=== PATIENT | male | born 1935 | race Caucasian/White ===

== ENCOUNTER → 2023-08-08 08:10 | Outpatient (REF) | payer MEDICARE, OTHER, SELFPAY ==
[2023-08-08 09:50] LABS: HDL Cholesterol 47 mg/dl; LDL Cholesterol, Calculated 85 mg/dl; Total Cholesterol 153 mg/dl (50-199); Triglyceride 109 mg/dl (10-149); Very Low Density Lipoprotein 21 mg/dl (0-30)
== END ==
LOC: HWLAB 08:10
PROVIDERS: ATTENDING PHYSICIAN Family Medicine
DX: I70.0 Atherosclerosis of aorta (principal)
CPT/HCPCS: 36415; 80061

== ENCOUNTER → 2023-10-14 11:33 | Outpatient (REF) | payer MEDICARE, OTHER, SELFPAY | LOC: HWLAB 11:33 | PROVIDERS: ATTENDING PHYSICIAN Specialist; FAMILY PHYSICIAN Family Medicine | DX: C61 Malignant neoplasm of prostate (principal); R97.20 Elevated prostate specific antigen [PSA] | CPT/HCPCS: 36415; 84153; 84403 ==

== ENCOUNTER 2023-11-01 13:25 | Emergency (ER) | payer MEDICARE, OTHER, SELFPAY ==
[2023-11-01 13:26] VITALS: BP 154/84
--- NOTE | 2023-11-01 14:21 | ED.GENMED ---
History of Present Illness
<Tonja Mars PA-C - Last Filed: 11/01/23 17:20>
General
Chief Complaint: Skin Surface Trauma
Source: patient
Exam Limitations: none
Time Seen by Provider: 11/01/23 13:47
Nursing documentation reviewed up to this point in time: agreed with
Travel History
Have you had any contact with someone who has COVID-19?: No
Do you have any symptoms of coronavirus? Fever > 100 degrees, chills, cough, shortness of breath, sore throat, loss of taste or smell, muscle aches, or headache?: No
History of Present Illness
History of Present Illness:
88-year-old male with a past medical history of PE on Eliquis, hypertension, presenting to the emergency department today with a laceration on his left lower leg. Patient states that he is getting out of the car when he cut his leg on the side of
the door. Patient reports burning at the site of the laceration but denies any significant bony pain. Patient denies any falls, patient denies any head trauma, patient denies any loss of consciousness. Patient denies any other injuries. Patient
will need his tetanus vaccination today as he is not up-to-date.
Past History
<Tonja Mars PA-C - Last Filed: 11/01/23 17:20>
Past History
ED Past Medical History: HTN and Other (pneumonia, Kidney stones, PE,)
ED Past Surgical History: None
Social History
Tobacco: Non-smoker
Alcohol: Occasional
Drug: None
Personal:
Living: with family
Employment: Retired
Family History
Family History: Other (Noncontributory)
Review of Systems
<Tonja Mars PA-C - Last Filed: 11/01/23 17:20>
Review of Systems
All Other Systems: ROS reviewed and negative except as documented in HPI and ROS
Phy Exam
<Tonja Mars PA-C - Last Filed: 11/01/23 17:20>
Physical Exam
Physical Exam:
General: Patient is well appearing and in no acute distress; non-toxic
Skin: Warm and dry, 7 cm L shaped laceration with well vascularized flap on Left anterior huizar, active bleeding noted.
Head: Normocephalic, atraumatic
Eyes: Sclera non-icteric. EOMs intact.
Cardiac: Regular rate
Pulm: Normal respiratory effort
Abdomen: No abdominal tenderness
Musculoskeletal: No bony tenderness to palpation of b/l lower extremities. Full ROM of bilateral lower extremities.
Neuro: CN II-XII intact, no focal neurologic deficits.
Psychiatric: Appropriate mood and affect.
Course
<Tonja Mars PA-C - Last Filed: 11/01/23 17:20>
Orders/Labs/Results
Orders:
Orders
11/01/23 14:28
Tetanus/Diphth/Acelpertussis [Adacel] 0.5 ml IM .ONCE ONE
Vital Signs
Initial and Last Documented VS:
Initial Vital Signs
Temp Pulse Resp BP Pulse Ox
98.8 F 86 20 154/84 94
11/01/23 13:26 11/01/23 13:26 11/01/23 13:26 11/01/23 13:26 11/01/23 13:26
Last Documented Vital Signs
Temp Pulse Resp BP Pulse Ox
98.8 F 86 20 154/84 94
11/01/23 13:26 11/01/23 13:26 11/01/23 13:26 11/01/23 13:26 11/01/23 13:26
<Kentrell Blood MD - Last Filed: 11/01/23 18:41>
Orders/Labs/Results
Orders:
Orders
11/01/23 14:28
Tetanus/Diphth/Acelpertussis [Adacel] 0.5 ml IM .ONCE ONE
Vital Signs
Initial and Last Documented VS:
Initial Vital Signs
Temp Pulse Resp BP Pulse Ox
98.8 F 86 20 154/84 94
11/01/23 13:26 11/01/23 13:26 11/01/23 13:11/01/23 13:11/01/23 13:26
Last Documented Vital Signs
Temp Pulse Resp BP Pulse Ox
98.8 F 86 20 154/84 94
11/01/23 13:26 11/01/23 13:26 11/01/23 13:26 11/01/23 13:11/01/23 13:26
Procedures
<TREVIN Huitron Last Filed: 11/01/23 17:20>
Laceration Closure
Left Anterior Leg:
Status of Wound: clean
Size of Wound in cm: 7
Description of Wound Edges: flap-well vascularized
Preparation: cleaned with saline and cleaned with Betadine
Anesthesia: 1% Lidocaine with epi
Revision/Debridement: routine- no revision
Wound exploration: explored to base- no FB
Type of Closure: single layer closure
Skin Closure Material: 4-0 prolene
Number of sutures: 9
<TREVIN Huitron Last Filed: 11/01/23 17:20>
MDM/Problems Addressed
Differential Diagnosis Includes:
laceration, abrasion, skin tear
MDM/Problems Addressed:
left anterior skin laceration
Chronic conditions affecting care:
PE, DVT, HTN,
Acute Exacerbation and/or Progression of Chronic Illness:
eliquis use
<TREVIN Huitron Last Filed: 11/01/23 17:20>
*Pulse Oximetry
Patient hypoxic: no
*Critical Care Note
Total Time (30-74mins, 75-104mins- exclusive of procedures): Not Applicable
Data Reviewed
Review of Other/Old Records Reveals: Records (Reviewed previous records, reviewed ER physician documentation from 08/20/2020) and Discharge Summary (no discharge summary in [facility] to review)
Source: patient and records
<Tonja Mars PA-C - Last Filed: 11/01/23 17:20>
Patient Management
Escalation/DeEscalation of care consider admission/obs:
88-year-old male with a past medical history of PE on Eliquis, hypertension, presenting to the emergency department today with a laceration on his left lower leg. It is actively bleeding. It is L-shaped and around 7 cm. The wound was repaired
with 4-0 Prolene sutures. Patient tolerated this procedure well. Hemostasis achieved. Return precautions and wound care instructions given. Patient stable for discharge. All patient's questions were answered.
ED Attending Note
<Tonja Mars PA-C - Last Filed: 11/01/23 17:20>
-
Portions of this chart may have been created with voice recognition software.� Occasional wrong word or��sound alike� substitutions may have occurred due to the inherent limitations of voice recognition software.
<Kentrell Blood MD - Last Filed: 11/01/23 18:41>
ED Attending Note
Patient seen and examined by attending physician: Yes
I performed the substantive portion of visit, reviewed & personally made and approve the management plan that is documented in note by myself or CRISTINA.: Yes
ED Attending Note:
88-year-old male hit his leg on the car door. L-shaped laceration of the lower leg. Flap-like laceration but decent amount of subcutaneous tissue. Motor or sensory neurovascular intact.
Plan is tetanus shot. We will carefully try to suture this although if there is skin tears we will have to change him to a Steri-Strip. Wound will be rechecked.
Wound was rechecked after suturing. Well-done suturing. Discharged to follow-up
Discharge Plan
Departure
Patient Disposition: Home (Routine Discharge)
Date of Disposition: 11/01/23
Time of Disposition: 15:36
Patient with high blood pressure during this ER visit?: Yes
Condition: Good
Discharge Problem:
Laceration of leg
Instructions: Wound Care (DC), Laceration Repair With Stitches (DC), BLOOD PRESSURE
Prescriptions:
No Action
hydrochlorothiazide 12.5 MG tablet
12.5 mg PO DAILY
cholecalciferol (vitamin D3) 2,000 UNITS tablet
2,000 units PO DAILY
brinzolamide-brimonidine [Simbrinza] 1-0.2% drops,suspension
1 drp BOTH EYES BID
rivaroxaban [Xarelto] 15 MG tablet
2.5 mg PO BID
Referrals:
Chepe Chacon MD [Family Provider] -
Activity Restrictions/Additional Instructions:
Please keep the wound dry for 24 hours. After 24 hours, you can wash it with mild soap and water. Please keep the wound covered with a nonadherent pad and any wrap.
Please report to your family doctor or the emergency department to have your stitches removed in 7 to 10 days.
Please return to emergency department should you experience purulent drainage from your wound, fevers or chills, surrounding redness to the wound, and acute worsening of your pain, or any other signs or symptoms concerning to you.
Interventions
Interventions:
*Risk Screen - Suicide Last Done: 11/01/23 13:26
*General Assessment Last Done: 11/01/23 13:26
*Neglect/Abuse Screening Last Done: 11/01/23 13:26
*ED COVID-19 Vaccine History Last Done: 11/01/23 13:58
*Nursing Disposition Last Done: 11/01/23 16:07
ED-Skin Assessment Last Done: 11/01/23 13:58
Discharge Date and Time
Discharge Date/Time: 11/01/23 16:08
Print Language: KITTITIAN
[2023-11-01] MEDS: ADACEL 0.5 ML IM (14:59)
== END 2023-11-01 16:08 | disposition home or self-care (01) ==
LOC: EMR 13:25
PROVIDERS: EMERGENCY PHYSICIAN Emergency Medicine; FAMILY PHYSICIAN Family Medicine
DX: S81.812A Laceration without foreign body, left lower leg, initial encounter (principal); W45.8XXA Other foreign body or object entering through skin, initial encounter; I10 Essential (primary) hypertension; Z79.01 Long term (current) use of anticoagulants; Z86.711 Personal history of pulmonary embolism; Z23 Encounter for immunization
CPT/HCPCS: 99284; 90471; 12004; 90715

== ENCOUNTER → 2023-12-12 09:28 | Outpatient (REF) | payer MEDICARE, OTHER, SELFPAY | LOC: HWLAB 09:28 | PROVIDERS: ATTENDING PHYSICIAN Specialist; FAMILY PHYSICIAN Family Medicine | DX: C61 Malignant neoplasm of prostate (principal); R97.20 Elevated prostate specific antigen [PSA] | CPT/HCPCS: 36415; 84153; 84403 ==

== ENCOUNTER → 2024-01-09 07:31 | Outpatient (REF) | payer MEDICARE, OTHER, SELFPAY ==
[2024-01-09 10:35] LABS: ALT (SGPT) 23 U/L (0-50); AST (SGOT) 28 U/L (17-59); Albumin 3.8 g/dl (3.5-5.0); Alkaline Phosphatase 73 U/L (38-126); Blood Urea Nitrogen 25 mg/dl (9-20); Calcium 9.1 mg/dl (8.4-10.2); Carbon Dioxide 26 mmol/L (22-30); Chloride 105 mmol/L (98-107); Glucose 87 mg/dl (70-99); HDL Cholesterol 46 mg/dl; LDL Cholesterol, Calculated 91 mg/dl; Potassium 3.5 mmol/L (3.5-5.1); Sodium 139 mmol/L (135-145); Total Bilirubin 0.7 mg/dl (0.2-1.3); Total Cholesterol 151 mg/dl (50-199); Total Protein 6.6 g/dl (6.3-8.2); Triglyceride 70 mg/dl (10-149); Very Low Density Lipoprotein 14 mg/dl (0-30); eGFR 58.53
[2024-01-09 10:55] LABS: Vitamin D, 25-OH*** 27.3 ng/mL (30-80)
[2024-01-09 11:27] LABS: Vitamin B12 249 pg/ml (239-931)
[2024-01-09 13:19] LABS: % Basophils 0.5 % (0-2); % Eosinophils 1.8 % (0-6); % Immature Granulocytes 0.2 % (0-0.5); % Lymphocytes 38.8 % (20.5-51.1); % Monocytes 10.3 % (1.7-9.3); % Neutrophils 48.4 % (42.2-75.2); Absolute Eosinophils 0.2 10^3/uL (0-0.7); Absolute Lymphocytes 3.3 10^3/uL (1.2-3.4); Absolute Monocytes 0.9 10^3/uL (0.1-0.6); Absolute Neutrophils 4.1 10^3/uL (1.4-6.5); Hemoglobin 14.1 g/dL (13.0-18.0); Mean Corp Hgb Conc. 32.8 g/dL (33.0-37.0); Mean Corpuscular Hgb 29.1 pg (27.0-31.0); Mean Corpuscular Volume 88.8 fL (80.0-94.0); Mean Platelet Volume 10.5 fL (7.4-10.4); Nucleated Red Blood Cells % 0 % (-); Platelet Count 239 10^3/uL (130-400); Red Blood Cell Count 4.84 10^6/uL (4.70-6.10); White Blood Cell Count 8.6 10^3/uL (4.8-10.8)
== END ==
LOC: HWLAB 07:31
PROVIDERS: ATTENDING PHYSICIAN Family Medicine
DX: I70.0 Atherosclerosis of aorta (principal); N18.32 Chronic kidney disease, stage 3b; E55.9 Vitamin D deficiency, unspecified; D51.9 Vitamin B12 deficiency anemia, unspecified
CPT/HCPCS: 36415; 80053; 80061; 82306; 82607; 85025

== ENCOUNTER → 2024-02-15 07:59 | Outpatient (REF) | payer MEDICARE, OTHER, SELFPAY ==
[2024-02-15 09:54] LABS: % Basophils 0.5 % (0-2); % Eosinophils 1.6 % (0-6); % Immature Granulocytes 0.3 % (0-0.5); % Lymphocytes 37.7 % (20.5-51.1); % Monocytes 10.3 % (1.7-9.3); % Neutrophils 49.6 % (42.2-75.2); Absolute Basophils 0.1 10^3/uL (0-0.2); Absolute Eosinophils 0.2 10^3/uL (0-0.7); Absolute Lymphocytes 3.7 10^3/uL (1.2-3.4); Absolute Neutrophils 4.9 10^3/uL (1.4-6.5); Hematocrit 43.3 % (39.0-52.0); Hemoglobin 14.5 g/dL (13.0-18.0); Mean Corp Hgb Conc. 33.5 g/dL (33.0-37.0); Mean Corpuscular Hgb 29.4 pg (27.0-31.0); Mean Corpuscular Volume 87.8 fL (80.0-94.0); Nucleated Red Blood Cells % 0 % (-); Platelet Count 232 10^3/uL (130-400); Red Blood Cell Count 4.93 10^6/uL (4.70-6.10); Red Cell Dist. Width 14.4 % (11.5-14.5); White Blood Cell Count 9.8 10^3/uL (4.8-10.8)
[2024-02-15 11:19] LABS: ALT (SGPT) 25 U/L (0-50); AST (SGOT) 31 U/L (17-59); Albumin 3.8 g/dl (3.5-5.0); Alkaline Phosphatase 66 U/L (38-126); Blood Urea Nitrogen 34 mg/dl (9-20); Calcium 9.3 mg/dl (8.4-10.2); Carbon Dioxide 26 mmol/L (22-30); Chloride 102 mmol/L (98-107); Glucose 92 mg/dl (70-99); LDH 181 U/L (120-246); Potassium 3.4 mmol/L (3.5-5.1); Sodium 137 mmol/L (135-145); Total Bilirubin 0.5 mg/dl (0.2-1.3); Total Protein 6.6 g/dl (6.3-8.2); eGFR 48.65
== END ==
LOC: HWLAB 07:59
PROVIDERS: ATTENDING PHYSICIAN Internal Medicine Hematology & Oncology; FAMILY PHYSICIAN Family Medicine
DX: I82.499 Acute embolism and thrombosis of other specified deep vein of unspecified lower extremity (principal); I26.99 Other pulmonary embolism without acute cor pulmonale; R79.89 Other specified abnormal findings of blood chemistry
CPT/HCPCS: 36415; 80053; 83615; 85025

== ENCOUNTER → 2024-03-21 11:44 | Outpatient (REF) | payer MEDICARE, OTHER, SELFPAY ==
[2024-03-21 16:32] LABS: NT-proBNP 529 pg/ml
[2024-03-21 16:38] LABS: Albumin 3.9 g/dl (3.5-5.0); Blood Urea Nitrogen 35 mg/dl (9-20); Calcium 9.4 mg/dl (8.4-10.2); Carbon Dioxide 25 mmol/L (22-30); Chloride 102 mmol/L (98-107); Glucose 85 mg/dl (70-99); Phosphorus 3.7 mg/dl (2.5-4.5); Sodium 142 mmol/L (135-145); eGFR 53.17
[2024-03-21 17:21] LABS: Urine Protein 6 mg/dl
[2024-03-21 17:23] LABS: Microalbumin, Random Urine 1.1 mg/dl (0.6-1.7); Microalbumin/creatinine Ratio 6.8 mg/g
== END ==
LOC: HWLAB 11:44
PROVIDERS: ATTENDING PHYSICIAN Specialist; FAMILY PHYSICIAN Family Medicine
DX: N25.81 Secondary hyperparathyroidism of renal origin (principal); I10 Essential (primary) hypertension; R60.0 Localized edema; N20.0 Calculus of kidney; N18.32 Chronic kidney disease, stage 3b
CPT/HCPCS: 80069; 82043; 82570; 83880; 83970; 84156

== ENCOUNTER → 2024-04-05 10:21 | Outpatient (REF) | payer MEDICARE, OTHER, SELFPAY ==
[2024-04-05 12:45] LABS: PSA, Total - Diagnostic 6.18 ng/ml (0.0-4.0)
[2024-04-05 12:48] LABS: Testosterone, Total 17.5 ng/dl (72-623)
== END ==
LOC: HWLAB 10:21
PROVIDERS: ATTENDING PHYSICIAN Specialist; FAMILY PHYSICIAN Family Medicine
DX: C61 Malignant neoplasm of prostate (principal); R97.20 Elevated prostate specific antigen [PSA]
CPT/HCPCS: 36415; 84153; 84403

== ENCOUNTER → 2024-05-14 07:45 | Outpatient (REF) | payer MEDICARE, OTHER, SELFPAY ==
[2024-05-14 09:37] LABS: % Basophils 0.6 % (0-2); % Eosinophils 2.9 % (0-6); % Immature Granulocytes 0.1 % (0-0.5); % Lymphocytes 40.5 % (20.5-51.1); % Monocytes 9.2 % (1.7-9.3); % Neutrophils 46.7 % (42.2-75.2); Absolute Basophils 0.1 10^3/uL (0-0.2); Absolute Eosinophils 0.3 10^3/uL (0-0.7); Absolute Lymphocytes 3.6 10^3/uL (1.2-3.4); Absolute Monocytes 0.8 10^3/uL (0.1-0.6); Absolute Neutrophils 4.1 10^3/uL (1.4-6.5); Hematocrit 41.3 % (39.0-52.0); Hemoglobin 13.6 g/dL (13.0-18.0); Mean Corp Hgb Conc. 32.9 g/dL (33.0-37.0); Mean Corpuscular Hgb 30.1 pg (27.0-31.0); Mean Corpuscular Volume 91.4 fL (80.0-94.0); Mean Platelet Volume 9.9 fL (7.4-10.4); Nucleated Red Blood Cells % 0 % (-); Platelet Count 226 10^3/uL (130-400); Red Blood Cell Count 4.52 10^6/uL (4.70-6.10); Red Cell Dist. Width 14.1 % (11.5-14.5); White Blood Cell Count 8.8 10^3/uL (4.8-10.8)
[2024-05-14 10:19] LABS: ALT (SGPT) 24 U/L (0-50); AST (SGOT) 29 U/L (17-59); Albumin 3.8 g/dl (3.5-5.0); Alkaline Phosphatase 58 U/L (38-126); Blood Urea Nitrogen 37 mg/dl (9-20); Calcium 9.2 mg/dl (8.4-10.2); Carbon Dioxide 26 mmol/L (22-30); Chloride 103 mmol/L (98-107); Glucose 92 mg/dl (70-99); HDL Cholesterol 45 mg/dl; LDL Cholesterol, Calculated 85 mg/dl; Potassium 3.7 mmol/L (3.5-5.1); Sodium 143 mmol/L (135-145); Total Bilirubin 0.5 mg/dl (0.2-1.3); Total Cholesterol 147 mg/dl (50-199); Total Protein 6.6 g/dl (6.3-8.2); Triglyceride 85 mg/dl (10-149); Very Low Density Lipoprotein 17 mg/dl (0-30); eGFR 58.17
[2024-05-14 10:32] LABS: Vitamin D, 25-OH*** 30.4 ng/mL (30-80)
[2024-05-14 11:05] LABS: Vitamin B12 273 pg/ml (239-931)
== END ==
LOC: HWLAB 07:45
PROVIDERS: ATTENDING PHYSICIAN Family Medicine
DX: E78.2 Mixed hyperlipidemia (principal); I10 Essential (primary) hypertension; N18.31 Chronic kidney disease, stage 3a; D51.9 Vitamin B12 deficiency anemia, unspecified; E55.9 Vitamin D deficiency, unspecified
CPT/HCPCS: 36415; 80053; 80061; 82306; 82607; 85025

== ENCOUNTER → 2024-06-15 10:05 | Outpatient (REF) | payer MEDICARE, OTHER, SELFPAY | LOC: HWRCS 10:05 | PROVIDERS: ATTENDING PHYSICIAN Family Medicine | DX: I35.8 Other nonrheumatic aortic valve disorders (principal) | CPT/HCPCS: 93306 ==

== ENCOUNTER → 2024-08-14 15:59 | Outpatient (REF) | payer MEDICARE, OTHER, SELFPAY ==
[2024-08-14 11:08] LABS: % Basophils 0.4 % (0-2); % Eosinophils 2.8 % (0-6); % Immature Granulocytes 0.1 % (0-0.5); % Lymphocytes 35.3 % (20.5-51.1); % Monocytes 10.2 % (1.7-9.3); % Neutrophils 51.2 % (42.2-75.2); Absolute Eosinophils 0.3 10^3/uL (0-0.7); Absolute Lymphocytes 3.7 10^3/uL (1.2-3.4); Absolute Monocytes 1.1 10^3/uL (0.1-0.6); Absolute Neutrophils 5.3 10^3/uL (1.4-6.5); Hematocrit 45.7 % (39.0-52.0); Hemoglobin 14.6 g/dL (13.0-18.0); Mean Corp Hgb Conc. 31.9 g/dL (33.0-37.0); Mean Corpuscular Hgb 29.7 pg (27.0-31.0); Mean Corpuscular Volume 93.1 fL (80.0-94.0); Mean Platelet Volume 9.2 fL (7.4-10.4); Platelet Count 263 10^3/uL (130-400); Red Blood Cell Count 4.91 10^6/uL (4.70-6.10); Red Cell Dist. Width 13.8 % (11.5-14.5); White Blood Cell Count 10.4 10^3/uL (4.8-10.8)
[2024-08-14 12:24] LABS: LDH 232 U/L (120-246)
== END ==
LOC: OIDL 15:59
PROVIDERS: ATTENDING PHYSICIAN Internal Medicine Hematology & Oncology
DX: I82.499 Acute embolism and thrombosis of other specified deep vein of unspecified lower extremity (principal)
CPT/HCPCS: 83615; 85025

== ENCOUNTER → 2024-09-05 07:42 | Outpatient (REF) | payer MEDICARE, OTHER, SELFPAY ==
[2024-09-05 09:37] LABS: % Basophils 0.5 % (0-2); % Eosinophils 2.3 % (0-6); % Immature Granulocytes 0.2 % (0-0.5); % Lymphocytes 41.5 % (20.5-51.1); % Monocytes 10.6 % (1.7-9.3); % Neutrophils 44.9 % (42.2-75.2); Absolute Basophils 0.1 10^3/uL (0-0.2); Absolute Eosinophils 0.2 10^3/uL (0-0.7); Absolute Lymphocytes 4.2 10^3/uL (1.2-3.4); Absolute Monocytes 1.1 10^3/uL (0.1-0.6); Absolute Neutrophils 4.6 10^3/uL (1.4-6.5); Hematocrit 44.8 % (39.0-52.0); Hemoglobin 14.3 g/dL (13.0-18.0); Mean Corp Hgb Conc. 31.9 g/dL (33.0-37.0); Mean Corpuscular Hgb 29.4 pg (27.0-31.0); Mean Platelet Volume 9.8 fL (7.4-10.4); Nucleated Red Blood Cells % 0 % (-); Platelet Count 242 10^3/uL (130-400); Red Blood Cell Count 4.87 10^6/uL (4.70-6.10); Red Cell Dist. Width 13.9 % (11.5-14.5); White Blood Cell Count 10.2 10^3/uL (4.8-10.8)
[2024-09-05 10:39] LABS: ALT (SGPT) 24 U/L (0-50); AST (SGOT) 26 U/L (17-59); Albumin 3.7 g/dl (3.5-5.0); Alkaline Phosphatase 73 U/L (38-126); Blood Urea Nitrogen 31 mg/dl (9-20); Calcium 9.3 mg/dl (8.4-10.2); Carbon Dioxide 30 mmol/L (22-30); Chloride 103 mmol/L (98-107); Glucose 92 mg/dl (70-99); Potassium 3.4 mmol/L (3.5-5.1); Sodium 140 mmol/L (135-145); Total Bilirubin 0.7 mg/dl (0.2-1.3); Total Protein 6.7 g/dl (6.3-8.2); eGFR 52.84
[2024-09-05 11:29] LABS: Vitamin B12 254 pg/ml (239-931)
== END ==
LOC: HWLAB 07:42
PROVIDERS: ATTENDING PHYSICIAN Specialist; FAMILY PHYSICIAN Family Medicine
DX: C61 Malignant neoplasm of prostate (principal); N18.31 Chronic kidney disease, stage 3a; D51.9 Vitamin B12 deficiency anemia, unspecified
CPT/HCPCS: 36415; 80053; 82607; 84153; 85025

== ENCOUNTER → 2024-12-18 07:07 | Outpatient (REF) | payer MEDICARE, OTHER, SELFPAY ==
[2024-12-18 09:26] LABS: PSA, Total - Diagnostic 5.68 ng/ml (0.0-4.0)
== END ==
LOC: HWLAB 07:07
PROVIDERS: ATTENDING PHYSICIAN Specialist; FAMILY PHYSICIAN Family Medicine
DX: C61 Malignant neoplasm of prostate (principal)
CPT/HCPCS: 36415; 84153

== ENCOUNTER → 2025-01-04 07:10 | Outpatient (REF) | payer MEDICARE, OTHER, SELFPAY ==
[2025-01-04 08:58] LABS: Hematocrit 41.7 % (39.0-52.0); Hemoglobin 13.8 g/dL (13.0-18.0); Mean Corp Hgb Conc. 33.1 g/dL (33.0-37.0); Mean Corpuscular Volume 88.9 fL (80.0-94.0); Nucleated Red Blood Cells % 0 % (-); Platelet Count 214 10^3/uL (130-400); Red Cell Dist. Width 14.4 % (11.5-14.5)
[2025-01-04 09:14] LABS: ALT (SGPT) 21 U/L (0-50); AST (SGOT) 26 U/L (17-59); Albumin 3.9 g/dl (3.5-5.0); Alkaline Phosphatase 62 U/L (38-126); Blood Urea Nitrogen 32 mg/dl (9-20); Calcium 9.2 mg/dl (8.4-10.2); Carbon Dioxide 24 mmol/L (22-30); Chloride 109 mmol/L (98-107); Glucose 94 mg/dl (70-99); HDL Cholesterol 46 mg/dl; LDL Cholesterol, Calculated 99 mg/dl; Potassium 3.8 mmol/L (3.5-5.1); Sodium 140 mmol/L (135-145); Total Protein 6.7 g/dl (6.3-8.2); Very Low Density Lipoprotein 16 mg/dl (0-30); eGFR 52.84
[2025-01-04 09:26] LABS: Vitamin D, 25-OH*** 22.1 ng/mL (30-80)
[2025-01-04 10:00] LABS: Vitamin B12 260 pg/ml (239-931)
== END ==
LOC: HWLAB 07:10
PROVIDERS: ATTENDING PHYSICIAN Family Medicine
DX: N18.31 Chronic kidney disease, stage 3a (principal); E55.9 Vitamin D deficiency, unspecified; D51.9 Vitamin B12 deficiency anemia, unspecified; E78.2 Mixed hyperlipidemia
CPT/HCPCS: 36415; 80053; 80061; 82306; 82607; 85025

== ENCOUNTER → 2025-03-08 07:46 | Outpatient (REF) | payer MEDICARE, OTHER, SELFPAY ==
[2025-03-08 09:55] LABS: Hematocrit 40.6 % (39.0-52.0); Hemoglobin 13.4 g/dL (13.0-18.0); Mean Corp Hgb Conc. 33.0 g/dL (33.0-37.0); Mean Corpuscular Volume 90.8 fL (80.0-94.0); Nucleated Red Blood Cells % 0 % (-); Platelet Count 238 10^3/uL (130-400); Red Cell Dist. Width 13.4 % (11.5-14.5)
[2025-03-08 10:56] LABS: LDH 183 U/L (120-246)
== END ==
LOC: HWLAB 07:46
PROVIDERS: ATTENDING PHYSICIAN Internal Medicine Hematology & Oncology; FAMILY PHYSICIAN Family Medicine
DX: I82.499 Acute embolism and thrombosis of other specified deep vein of unspecified lower extremity (principal); I26.99 Other pulmonary embolism without acute cor pulmonale; R79.89 Other specified abnormal findings of blood chemistry; D72.820 Lymphocytosis (symptomatic)
CPT/HCPCS: 36415; 83615; 85025

== ENCOUNTER → 2025-03-22 11:03 | Outpatient (REF) | payer MEDICARE, OTHER, SELFPAY ==
[2025-03-22 16:30] LABS: PSA, Total - Diagnostic 10.40 ng/ml (0.0-4.0)
== END ==
LOC: HWLAB 11:03
PROVIDERS: ATTENDING PHYSICIAN Specialist; FAMILY PHYSICIAN Family Medicine
DX: C61 Malignant neoplasm of prostate (principal)
CPT/HCPCS: 36415; 84153; 84403

== ENCOUNTER → 2025-04-05 07:18 | Outpatient (REF) | payer MEDICARE, OTHER, SELFPAY ==
[2025-04-05 09:49] LABS: Albumin 4.2 g/dl (3.5-5.0); Blood Urea Nitrogen 30 mg/dl (9-20); Calcium 9.5 mg/dl (8.4-10.2); Carbon Dioxide 29 mmol/L (22-30); Chloride 104 mmol/L (98-107); Glucose 92 mg/dl (70-99); Magnesium 2.2 mg/dl (1.6-2.3); Potassium 3.8 mmol/L (3.5-5.1); Sodium 140 mmol/L (135-145); Uric Acid 7.5 mg/dl (3.5-8.5); eGFR 57.81
== END ==
LOC: HWLAB 07:18
PROVIDERS: ATTENDING PHYSICIAN Specialist; FAMILY PHYSICIAN Family Medicine
DX: I10 Essential (primary) hypertension (principal); D51.9 Vitamin B12 deficiency anemia, unspecified; E55.9 Vitamin D deficiency, unspecified; N18.31 Chronic kidney disease, stage 3a
CPT/HCPCS: 36415; 80069; 82570; 83735; 84156; 84550

== ENCOUNTER → 2025-04-26 10:07 | Outpatient (REF) | payer MEDICARE, OTHER, SELFPAY | LOC: RAD 10:07 | PROVIDERS: ATTENDING PHYSICIAN Specialist; FAMILY PHYSICIAN Family Medicine | DX: C61 Malignant neoplasm of prostate (principal) | CPT/HCPCS: 78803; A9503 ==